=== PATIENT | female | born 1960 | race Caucasian/White ===

== ENCOUNTER 2017-07-31 06:25 | Day surgery (SDC) | payer OTHER ==
[2017-07-26 11:37] LABS: Urine Bacteria NONE SEEN /hpf (None Seen); Urine Blood TRACE /uL (Negative); Urine Specific Gravity 1.006 (1.001-1.035); Urine WBC 1 /hpf (0 - 5)
[2017-07-26 11:39] LABS: Basophils # (auto) 0.1 uL; Basophils % (auto) 1.4 % (0.0-2.0); Eosinophils # (auto) 0.3 uL; Hematocrit 47.2 % (36.0-46.0); Hemoglobin 16.1 g/dL (12.2-16.2); Lymphocytes % (auto) 18.6 % (10.0-50.0); Mean Corpuscular Hemoglobin 29.1 pg (28.0-32.0); Mean Corpuscular Hgb Conc. 34.1 g/dL (32.0-36.0); Mean Corpuscular Volume 85.3 fL (80.0-100.0); Monocytes # (auto) 0.7 uL; Monocytes % (auto) 6.7 % (0.0-12.0); Neutrophils # (auto) 7.4 uL; Neutrophils % (auto) 70.3 % (37.0-80.0); Nucleated Red Blood Cells % 0.1 %; Platelet Count (auto) 305 10^3/uL (140-450); Red Blood Cells 5.53 10^6/uL (4.0-5.20); Red Cell Distribution Width 14.5 % (11.8-14.3); White Blood Cell 10.6 10^3/uL (4.4-10.8)
[2017-07-26 11:49] LABS: INR 0.96 (0.9-1.15); Partial Thromboplastin Time 25.7 sec (22.64-33.71); Prothrombin Time 10.5 sec (9.37-12.3)
[2017-07-26 11:57] LABS: BUN/Creatinine Ratio 5.7; Calcium 8.2 mg/dL (8.5-10.1); Potassium 4.3 mmol/L (3.5-5.1)
[~2017-07-31] VITALS: Ht 175.3 cm; Wt 93.9 kg
[~2017-07-31 06:25] MED LIST: ALBUAER3 IN; CINA30TA2 PO; DIAZ-104 PO; DIGO0.1262 PO; ESOM40CA39 PO; HYDR-4683 PO; LEVO25TA6 PO; MONT10TA34 PO; ROSU5TAB5 PO; VERA120T6 PO
[2017-07-31] MEDS ORDERED: CIPROFLOXACIN 400MG/200ML 200 ML IV ONE (07:06)
[2017-07-31] MEDS ORDERED: MEPERIDINE HCL (50 MG/ML) 1 ML VIAL ONE (07:17)
[2017-07-31] MEDS ORDERED: fentaNYL CITRATE 100 MCG/2 ML VL ONE (07:17)
[2017-07-31] MEDS ORDERED: MIDAZOLAM HCL 1MG/1ML-2 ML VIAL ONE (07:17)
[2017-07-31] MEDS ORDERED: SUCCINYLCHOLINE CHLORIDE 20 MG/ML 10ML VIAL IV ONE (07:44)
[2017-07-31] MEDS ORDERED: KETOROLAC TROMETH 30 MG/ML 1ML VIAL ONE (07:59)
[2017-07-31] MEDS ORDERED: ONDANSETRON HCL 4 MG/2 ML VIAL ONE (07:59)
[2017-07-31] MEDS ORDERED: DEXAMETHASONE SOD PHOS 10MG/1ML VIAL INJ ONE (07:59)
[2017-07-31] MEDS ORDERED: PROPOFOL 10 MG/ML 20 ML IV ONE (07:59)
[2017-07-31] MEDS ORDERED: MIDAZOLAM HCL 1MG/1ML-2 ML VIAL IV PRN (08:00)
[2017-07-31] MEDS ORDERED: KETOROLAC TROMETH 30 MG/ML 1ML VIAL IV ONE (08:00)
[2017-07-31] MEDS ORDERED: ePHEDrine SULFATE 50 MG/ML AMP IV PRN (08:00)
[2017-07-31] MEDS ORDERED: LABETALOL HCL 5 MG/ML 4ML SYRINGE IV PRN (08:00)
[2017-07-31] MEDS ORDERED: HYDROmorphone HCL 2 MG/ML VL IV PRN (08:00)
[2017-07-31] MEDS ORDERED: MORPHINE SULF INJ 2 MG/ML SYRINGE 1ML IV ONE (08:00)
[2017-07-31] MEDS ORDERED: ONDANSETRON HCL 4 MG/2 ML VIAL IV ONE (08:00)
[2017-07-31 09:20] VITALS: BP 126/74
== END 2017-07-31 09:20 | disposition home or self-care (01) ==
LOC: SUR 06:25
PROVIDERS: ATTEND Urology
DX: D49.4 Neoplasm of unspecified behavior of bladder (principal); Z88.0 Allergy status to penicillin; E66.9 Obesity, unspecified; Z68.30 Body mass index [BMI] 30.0-30.9, adult; J45.909 Unspecified asthma, uncomplicated; Z90.710 Acquired absence of both cervix and uterus; D69.6 Thrombocytopenia, unspecified
CPT/HCPCS: 36415; 52240; 80048; 81001; 85025; 85610; 85730; 87086; J0330; J0744; J1100; J1885; J2175; J2250; J2405; J2704; J3010

== ENCOUNTER 2021-03-08 06:34 | Day surgery (SDC) | payer OTHER ==
[~2021-03-08] VITALS: Ht 172.7 cm; Wt 95.7 kg
[~2021-03-08 06:34] MED LIST changes: -ALBUAER3 IN; +AZEL0.1S; +BUDE1AER4 IN; -DIAZ-104 PO; +DIGO0.12 PO; -DIGO0.1262 PO; -HYDR-4683 PO; -MONT10TA34 PO; +MONT10TA42 PO; +ROSU10TA16 PO; -ROSU5TAB5 PO; +VERA120T13 PO; -VERA120T6 PO
[2021-03-08] MEDS ORDERED: IODIXANOL 320MG/ML 100ML BTL IV ONE (07:21)
[2021-03-08] MEDS ORDERED: LIDOCAINE 2%HCL (LOCAL ANESTH.) INJ 20ML MDV ONE (07:21)
[2021-03-08] MEDS ORDERED: MIDAZOLAM HCL 2MG/2ML 2ml VIAL (1mg/ml) ONE (07:51)
[2021-03-08] MEDS ORDERED: HEPARIN SODIUM (PORCINE) 5000 UNITS/ML 1ML VIAL ONE (07:51)
[2021-03-08] MEDS ORDERED: fentaNYL CITRATE 100 MCG/2 ML VL ONE (07:51)
[2021-03-08] MEDS ORDERED: VERAPAMIL 2.5MG/ML INJ 2ML VIAL IV ONE (07:51)
[2021-03-08] MEDS ORDERED: ANGIOMAX 250 MG VIAL IV ONE (07:51)
[2021-03-08] MEDS ORDERED: SODIUM CHL 0.9% 0 ML ONE (07:52)
== END 2021-03-08 10:26 | disposition home or self-care (01) ==
LOC: CATH 06:34
PROVIDERS: ATTEND Internal Medicine Cardiovascular Disease
DX: I25.10 Atherosclerotic heart disease of native coronary artery without angina pectoris (principal); E78.5 Hyperlipidemia, unspecified; I10 Essential (primary) hypertension; Z88.0 Allergy status to penicillin; Z88.8 Allergy status to other drugs, medicaments and biological substances; Z20.822 Contact with and (suspected) exposure to COVID-19
CPT/HCPCS: 93458; C1887; C1894; J1644; J2250; J3010; Q9967; U0003; 99152